=== PATIENT | male | born 1995 | race Asian ===

== ENCOUNTER → 2021-06-14 09:10 | Outpatient (BNVA) | payer OTHER, SELFPAY | PROVIDERS: PCP Internal Medicine; Visit Provider Internal Medicine Pulmonary Disease | DX: J43.9 Emphysema, unspecified (principal); R06.00 Dyspnea, unspecified; Z90.2 Acquired absence of lung [part of] | CPT/HCPCS: 99202 ==

== ENCOUNTER 2021-07-04 08:24 | Outpatient (REF) | payer OTHER, SELFPAY ==
--- NOTE | 2021-07-04 13:27 | PFT_ITS ---
INDICATION: Dyspnea. SPIROMETRY: The FEV1 to FVC of 82% with an FEV1 of 3.68 L, which is 86% predicted, and an FVC of 4.48 L, which is 86% predicted. No significant response to bronchodilators noted. Maximum voluntary ventilation 75% predicted. LUNG VOLUMES: Total lung capacity 90% predicted with a residual volume of 96% predicted. DIFFUSION CAPACITY: DLCO 90% predicted. COMPARISONS: None to review. INTERPRETATION: No obstructive nor restrictive ventilatory defects identified. No significant response to bronchodilators noted. There is a mild decrease in maximum voluntary ventilation, which could be secondary to deconditioning. Lung volumes are within normal limits and diffusion capacity also within normal limits. If asthma is in the differential, methacholine challenge may be helpful in assessing for hyper-reactive airways, otherwise clinical correlation warranted. MD MARIN Paul/MODL / [id number]
== END 2021-07-04 08:25 | disposition home or self-care (01) ==
LOC: HO.RESP 08:24
PROVIDERS: PCP Internal Medicine; Visit Provider Internal Medicine Pulmonary Disease
DX: J43.9 Emphysema, unspecified (principal); R06.00 Dyspnea, unspecified; Z79.899 Other long term (current) drug therapy
CPT/HCPCS: 94060; 94727; 94729

== ENCOUNTER → 2021-07-25 08:50 | Outpatient (BNVA) | payer OTHER, SELFPAY | PROVIDERS: PCP Internal Medicine; Visit Provider Internal Medicine Pulmonary Disease | DX: J43.9 Emphysema, unspecified (principal); R06.00 Dyspnea, unspecified; Z90.2 Acquired absence of lung [part of] | CPT/HCPCS: 99212 ==

== ENCOUNTER → 2022-01-08 08:57 | Outpatient (BNVA) | payer OTHER, SELFPAY | PROVIDERS: PCP Internal Medicine; Visit Provider Internal Medicine Pulmonary Disease | DX: J43.9 Emphysema, unspecified (principal); R06.00 Dyspnea, unspecified; Z90.2 Acquired absence of lung [part of] | CPT/HCPCS: 99212 ==

== ENCOUNTER → 2022-07-18 09:05 | Outpatient (BNVA) | payer OTHER, SELFPAY | PROVIDERS: PCP Internal Medicine; Visit Provider Internal Medicine Pulmonary Disease | DX: J43.9 Emphysema, unspecified (principal); R05.8 Other specified cough; Z90.2 Acquired absence of lung [part of] | CPT/HCPCS: 99212 ==

== ENCOUNTER → 2022-10-02 07:31 | Outpatient (BNVA) | payer OTHER, SELFPAY | PROVIDERS: PCP Internal Medicine; Visit Provider Psychiatry & Neurology Neurology | DX: R20.0 Anesthesia of skin (principal); R20.2 Paresthesia of skin; R51.9 Headache, unspecified; R26.9 Unspecified abnormalities of gait and mobility; R06.83 Snoring | CPT/HCPCS: 99202 ==

== ENCOUNTER 2022-11-04 09:51 | Outpatient (REF) | payer OTHER, SELFPAY ==
--- NOTE | ~2022-11-04 | MR_ITS ---
EXAMINATION: MR BRAIN WITHOUT AND WITH CONTRAST CLINICAL INFORMATION: Right-sided numbness and gait imbalance, history of lung adenocarcinoma COMPARISON: None TECHNIQUE: Multiplanar multisequence MR imaging of the brain was obtained without and following the administration of 10 mL Gadavist intravenous contrast. FINDINGS: There is no acute infarct on diffusion-weighted imaging. There is no intracranial hemorrhage on iron-sensitive imaging. No extra-axial collection or mass effect/herniation. Normal parenchymal signal characteristics. No hydrocephalus. The ventricles are normal in morphology and size. No abnormal parenchymal or extra-axial enhancement. Small left cerebellar developmental venous anomaly. The major flow voids at the skull base are preserved. The midline structures are normal. The cerebellar tonsils are normally positioned. The craniocervical junction is normal. Marrow signal is within normal limits. The visualized soft tissues are without significant abnormality. No signal abnormality within the paranasal sinuses or within the mastoid air cells. MR/MR head/brain wo/w con IMPRESSION: Unremarkable contrast enhanced MRI of the brain.
== END 2022-11-04 09:52 | disposition home or self-care (01) ==
LOC: HO.MRI 09:51
PROVIDERS: PCP Internal Medicine; Visit Provider Psychiatry & Neurology Neurology
DX: R51.9 Headache, unspecified (principal); R20.0 Anesthesia of skin; R20.2 Paresthesia of skin; R26.9 Unspecified abnormalities of gait and mobility
CPT/HCPCS: 70553; A9585

== ENCOUNTER 2022-11-26 08:18 | Outpatient (REF) | payer OTHER, SELFPAY ==
--- NOTE | 2022-11-26 08:21 | EMG_ITS ---
Please see scanned EMG / Nerve Conduction Report. MTDD
== END 2022-11-26 08:19 | disposition home or self-care (01) ==
LOC: HO.NEURO 08:18
PROVIDERS: PCP Internal Medicine; Visit Provider Psychiatry & Neurology Neurology
DX: R20.2 Paresthesia of skin (principal); R20.0 Anesthesia of skin
CPT/HCPCS: 95886; 95913

== ENCOUNTER → 2022-12-16 08:13 | Outpatient (BNVA) | payer OTHER, SELFPAY | PROVIDERS: PCP Internal Medicine; Visit Provider Psychiatry & Neurology Neurology | DX: R20.0 Anesthesia of skin (principal); R20.2 Paresthesia of skin; R26.9 Unspecified abnormalities of gait and mobility; R06.83 Snoring | CPT/HCPCS: 99212 ==

== ENCOUNTER → 2023-01-02 08:40 | Outpatient (BNVA) | payer OTHER, SELFPAY | PROVIDERS: PCP Internal Medicine; Visit Provider Internal Medicine Pulmonary Disease | DX: J43.9 Emphysema, unspecified (principal); G89.18 Other acute postprocedural pain; R06.00 Dyspnea, unspecified; Z90.2 Acquired absence of lung [part of] | CPT/HCPCS: 99212 ==

== ENCOUNTER → 2023-01-14 15:47 | Outpatient (REF) | payer OTHER, SELFPAY | LOC: HO.SL 15:47 | PROVIDERS: PCP Internal Medicine; Visit Provider Psychiatry & Neurology Neurology | DX: G47.10 Hypersomnia, unspecified (principal); R06.83 Snoring | CPT/HCPCS: 95806 ==

== ENCOUNTER → 2023-01-14 15:58 | Outpatient (BNV) | payer OTHER, SELFPAY | PROVIDERS: PCP Internal Medicine; Visit Provider Psychiatry & Neurology Neurology | DX: R06.83 Snoring (principal) | CPT/HCPCS: 95806 ==

== ENCOUNTER 2023-01-26 09:24 | Outpatient (AMB) | payer OTHER, SELFPAY ==
--- NOTE | 2023-01-26 09:31 | A.OFFVIS_ITS ---
Intake Vital Signs 01/26/23 09:33 Height 5 ft 8 in Weight 214 lb BMI 32.5 BP 129/82 Blood Pressure Location Lt brachial Position Sitting Respiration 14 Pulse 87 Pulse Source Pulse Oximeter Intake Visit Reasons: Other Acute Postprocedural Pain Allergies naproxen [From Aleve] Allergy (Intermediate, Verified 01/26/23 09:34) Hives Medication List - Last Reconciled 01/26/23 by Myrna Segovia LPN blood sugar diagnostic (FreeStyle Lite Strips) As directed cholecalciferol (vitamin D3) 25 mcg PO DAILY empagliflozin (Jardiance) 25 mg PO DAILY flash glucose sensor (FreeStyle Kia 2 Sensor kit) As directed Flovent HFA 220 mcg/actuation (fluticasone propionate) 2 puffs inhalation BID 30 days NS gabapentin 300 mg PO TID lancets (FreeStyle Lancets) As directed lisinopril 10 mg PO DAILY metformin ER 1,000 mg PO BID rosuvastatin 10 mg PO BEDTIME tiotropium bromide 2.5 mcg/actuation (Spiriva Respimat) 2 puffs PO QAM HPI Other Acute Postprocedural Pain HPI Details 27-year-old male presenting today for an evaluation right lateral chest wall/upper abdominal pain. 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 Beginning in 2020, he started experiencing an aching, stabbing pain in his right lower anterior thoracic area. It is described as a twisting, aching sensation that is associated with the localized swelling in his right epigastrium. He also reports abnormal temperature sensation in this area, with his skin generally feeling international nurse this part of his torso compared to the rest. He also complains of occasional pain in his right axilla block. It is described as 8 to 10 out of 10 in intensity. It is most manageable when he first wakes up in the morning, when it is 3 out of 10, when it tends to get worse over the course of the day. He is unable to sleep normally or do his daily activities. He had an umbilical hernia repair in October 2020. He is using lidocaine patches in his right epigastric region. His pain was usually brought on by specific triggers, including coughing, sneezing, or overexertion. Recently, his pain has been more consistent and has been occurring even without the triggers, and it is still episodic, with ep isodes of excruciating pain that are not manageable, interspersed with times that he is relatively pain-free. His father had a history of lung cancer. The patient is currently taking gabapentin as of 06/2022 and feels his thoracic/abdominal symptoms have not improved since he started it. It does help with his lower extremity neuropathy symptoms. The patient also take ibuprofen for pain and occasionally supplement ibuprofen with a THC or CBD edible. He is a side sleeper, mostly on the right side, which provides significant relief. He has not tried TENS therapy yet. [facility] Medical History (Updated 01/26/23 @ 12:02 by Rudy Nesbitt MD) Adenocarcinoma Anxiety Depression Diabetes Fatty liver Gait abnormality HTN (hypertension) Hyperlipidemia Hypersomnia Lung cancer Numbness Right facial pain Snoring Thrombosis of right brachial vein Tingling Surgical History H/O hernia repair History of lung surgery Family History Mother Diabetes HTN (hypertension) Thyroid cancer Ovarian cancer Father Lung cancer Kidney failure Social History Alcohol intake: current Patient Tobacco Use Status: Never used Tobacco Substance Use Type: Marijuana Review of Systems Const All systems reviewed & are unremarkable except as noted in HPI and below Physical Exam Vital Signs: Last Vital Signs Pulse 87 01/26/23 09:33 Resp 14 01/26/23 09:33 BP 129/82 01/26/23 09:33 BMI result Body Mass Index 32.5 General: Appears afebrile. Alert and oriented. Mood and affect appropriate. Follows and participates in conversation appropriately. Respiratory effort is unlabored. Able to transition from sit to stand unassisted. Ambulates with bilaterally normal heel strike and toe off. The patient has a lidocaine patch in his right epigastric region, where he feels subjective periodic distension (not noticeable at this time) and is usually the most painful part. Stab incisions along the lower border of the right 12th rib. Sensitivity to touch in the corresponding dermatome, but no significant tenderness. Results Reviewed Results Reviewed: No imaging is available for review. 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 He appears to have symptoms consistent with a denervation injury with subsequent development of CRPS in his right lower thoracic dermatomal distribution. The specific involved dermatome is hard to elicit based on description alone. Will schedule him for right diagnostic intercostal nerve blocks in the office to map out the involved relevant intercostal nerves. Based on that mapping, we can consider trial of temporary intercostal nerve stimulator at the relevant level. Discussed the risks and benefits of the procedure with the patient in detail. All questions were answered. The patient is on board with the plan. Meanwhile, I went over details of TENS therapy with the patient. The patient will obtain a TENS unit over the counter. Justification for interventional therapy: ? Patient with average pain > 6/10 ? Patient has exhausted conservative therapy ? Patient unable to tolerate physical therapy due to pain Scribed for Dr. Nesbitt by Casa Yost, paramedical aide, on 01/26/2023. I, Dr. Nesbitt, have personally reviewed and agree with the information entered by the scribe. Coding Level of Care Code New Pt Level 4 (40919) Diagnoses CRPS (complex regional pain syndrome type I) G90.50 Intercostal neuralgia G58.8
[2023-01-26 09:33] VITALS: BP 129/82; PULSE 87; RESP 14; BMI 32.5
== END 2023-01-26 10:11 | disposition home or self-care (01) ==
PROVIDERS: PCP Internal Medicine; Visit Provider Internal Medicine
DX: G90.50 Complex regional pain syndrome I, unspecified (principal); G58.8 Other specified mononeuropathies
CPT/HCPCS: 99204

== ENCOUNTER → 2023-01-26 09:24 | Outpatient (BNVA) | payer OTHER, SELFPAY | PROVIDERS: PCP Internal Medicine; Visit Provider Internal Medicine | DX: G90.50 Complex regional pain syndrome I, unspecified (principal); G58.8 Other specified mononeuropathies | CPT/HCPCS: 99202 ==

== ENCOUNTER 2023-02-09 10:59 | Outpatient (AMB) | payer OTHER, SELFPAY ==
--- NOTE | 2023-02-09 11:14 | A.OFFVIS_ITS ---
Intake Vital Signs 02/09/23 11:59 Height 5 ft 8 in BP 130/67 Blood Pressure Location Rt brachial Position Sitting Pulse 97 Pulse Source Pulse Oximeter Pulse Oximetry (%) 98 Oxygen Delivery Method Room Air Intake Visit Reasons: Right Dx Intercostal NB Executive Receptionist Required: No Accompanied by: Self / Same As Patient Allergies naproxen [From Aleve] Allergy (Intermediate, Verified 02/09/23 12:00) Hives HPI Right Dx Intercostal NB HPI Details 27-year-old male presenting today for a right 10th and 11th intercoastal nerve block. Patient presents for scheduled procedure. Denies any recent cough, cold, infection, fever or other significant changes in medical history since last office visit. He states that TENS unit is providing moderate relief. [facility] Medical History (Updated 01/26/23 @ 12:02 by Rudy Nesbitt MD) Adenocarcinoma Anxiety Depression Diabetes Fatty liver Gait abnormality HTN (hypertension) Hyperlipidemia Hypersomnia Lung cancer Numbness Right facial pain Snoring Thrombosis of right brachial vein Tingling Surgical History H/O hernia repair History of lung surgery Family History Mother Diabetes HTN (hypertension) Thyroid cancer Ovarian cancer Father Lung cancer Kidney failure Social History Alcohol intake: current Patient Tobacco Use Status: Never used Tobacco Substance Use Type: Marijuana Review of Systems Const All systems reviewed & are unremarkable except as noted in HPI and below Physical Exam Vital Signs: Last Vital Signs Pulse 97 02/09/23 11:59 BP 130/67 02/09/23 11:59 Pulse Ox 98 02/09/23 11:59 Oxygen Delivery Method Room Air 02/09/23 11:59 General: Appears afebrile. Alert and oriented. Mood and affect appropriate. Follows and participates in conversation appropriately. Respiratory effort is unlabored. Able to transition from sit to stand unassisted. Ambulates with bilaterally normal heel strike and toe off. Office Procedures Nerve Block Details: Right 10th and 11th intercoastal nerve block, Ultra-sound Guided After obtaining written consent, pre-procedure time-out was completed. The patient was placed in a left lateral position. The relevant levels of the intercostal nerves were physically palpated corresponding to the patient's pain and marked. Using ultrasound, the appropriate landmarks including the rib, intercostal muscles and pleura were identified. The skin was anesthetized with 1% lidocaine. A 21-gauge 80 mm echostim needle was advanced under sonographic guidance in proximity to each of the intercostal nerves. Aspiration was negative for heme and air. 2 cc of ropivacaine 0.5% mixed with 10 mg Kenalog was injected around each of the targeted nerves. The needle was removed, skin cleansed and a sterile bandage was applied. The patient tolerated the procedure well and no complications were encountered. Following the procedure, the patient's vital signs and respiration were stable. The patient was discharged home in good condition with post-procedural instructions. Time Out: Immediately prior to the procedure, the following was verbally confirmed that there is a signed consent form and that the correct patient, planned procedure, site and side are consistent with documentation and that necessary equipment and/or blood products are available prior to the start of the case. Complications: none EBL: <1 cc Procedure code (CPT) selection complete Results Reviewed Results Reviewed: No imaging is available for review. Assessment & Plan Assessment & Plan (1) Intercostal neuralgia: Code(s): G58.8 - Other specified mononeuropathies (2) CRPS (complex regional pain syndrome type I): Comment: right mid-torso Code(s): G90.50 - Complex regional pain syndrome I, unspecified Plan Patient is status post right 10th and 11th intercoastal nerve block. Patient tolerated procedure well and was discharged home in stable condition with discharge instructions. All questions were answered. Three day follow-up update: Patient states he did not get much pain relief but reports no episodes of his abnormal abdominal muscle swelling during the course of the nerve block. Will proceed with a trial of left intercostal nerve stimulator placement along the previous VATS sca for CRPS secondary to intercostal nerve injury. He has exhausted neuropathic medication, transcutaneous electrical nerve stimulation and extensive rehab following the surgery. Scribed for Dr. Nesbitt by Casa Yost, medical doctor md/medical director, on 02/09/2023. I, Dr. Nesbitt, have personally reviewed and agree with the information entered by the scribe. Coding Level of Care Code Procedure Only Diagnoses Intercostal neuralgia G58.8 CRPS (complex regional pain syndrome type I) G90.50
[2023-02-09 11:59] VITALS: BP 130/67; PULSE 97; O2SAT 98
== END 2023-02-09 11:36 | disposition home or self-care (01) ==
PROVIDERS: PCP Internal Medicine; Visit Provider Internal Medicine
DX: G58.8 Other specified mononeuropathies (principal); G90.50 Complex regional pain syndrome I, unspecified
CPT/HCPCS: 64420; 76942

== ENCOUNTER → 2023-02-09 10:59 | Outpatient (BNVA) | payer OTHER, SELFPAY | PROVIDERS: PCP Internal Medicine; Visit Provider Internal Medicine | DX: G58.8 Other specified mononeuropathies (principal); G90.50 Complex regional pain syndrome I, unspecified | CPT/HCPCS: 64420; J2795; J3301 ==

== ENCOUNTER 2023-06-23 07:23 | Outpatient (AMB) | payer OTHER, SELFPAY ==
--- NOTE | 2023-06-23 07:54 | A.OFFVIS_ITS ---
Intake Vital Signs 06/23/23 07:55 Height 5 ft 8 in Weight 216 lb BMI 32.8 BP 124/87 Blood Pressure Location Rt brachial Position Sitting Intake Visit Reasons: 6m f/u Anesthesia of skin - Conf Allergies naproxen [From Aleve] Allergy (Intermediate, Verified 02/09/23 12:00) Hives HPI HPI Comments History of Present Illness Details 27y/o male with h/o lung adenocarcinoma - s/p cisplatin with alimta in 2019, h/o diabetes diagnosed in 2019 with Hg A1C 7.3 comes for follow up of numbness and tingling in LE. He had left foot numbness in the dorsal area 1 day after evaluation by supervisor benzene refining. His EMG and MRI Brain with alessandro was normal. Gabapentin 300mg tid helps and the symptoms are less now.He denies facial pain. He has CPAP bu meraz codyuble using because of humidifier. His sleep apnea is mild and he started sleeping on the side. Previous history- He reports numbness in distal LE and hands February 2022 . He says it is episodic more intense on the right side. He also has weakness during these episodes, along with tingling. No burning pain. He also feels like his right side of the body locks up . It is more during activity so he has decreased his activity level since Jun 2022. In Jun 2022 he had gout . He was seen by supervisor benzene refining- uses a cane as needed as he feels off balance. In Jul 2022 he noted electric shock sensation and pain in right side of the face for a few seconds - lasted 3 weeks .No numbness or tingling. He denies diplopia vertigo. Since lung surgery he has intermittent abdominal distension on the right side - relieved with standing, usually very painful . when he is pain he has difficulty thinking focusing etc. ANy activity or pressure can trigger. [facility] Medical History Hypersomnia Right facial pain Gait abnormality Tingling Numbness Anxiety Depression Fatty liver Snoring Hyperlipidemia Thrombosis of right brachial vein Diabetes HTN (hypertension) Lung cancer Adenocarcinoma Surgical History H/O hernia repair History of lung surgery Family History Mother Diabetes HTN (hypertension) Thyroid cancer Ovarian cancer Father Lung cancer Kidney failure Social History Alcohol intake: current Patient Tobacco Use Status: Never used Tobacco Substance Use Type: Marijuana Assessment & Plan Assessment & Plan (1) Numbness: Code(s): R20.0 - Anesthesia of skin (2) Tingling: Code(s): R20.2 - Paresthesia of skin (3) Gait abnormality: Code(s): R26.9 - Unspecified abnormalities of gait and mobility (4) Snoring: Code(s): R06.83 - Snoring Plan The etiology of episodic sensory symptoms are likely art of CRPS or small fiber neuropathy. MRI and EMG results discussed CPAP compliance stressed. Suggested position therapy if he did not tolertae CPAP . continue gabapentin 300mg tid Coding Level of Care Code Est Pt Level 4 (12992) Diagnoses Numbness R20.0 Tingling R20.2 Gait abnormality R26.9 Snoring R06.83
[2023-06-23 07:55] VITALS: BP 124/87; BMI 32.8
== END 2023-06-23 08:02 | disposition home or self-care (01) ==
PROVIDERS: PCP Internal Medicine; Visit Provider Psychiatry & Neurology Neurology
DX: R20.0 Anesthesia of skin (principal); R20.2 Paresthesia of skin; R26.9 Unspecified abnormalities of gait and mobility; R06.83 Snoring
CPT/HCPCS: 99214

== ENCOUNTER → 2023-06-23 07:23 | Outpatient (BNVA) | payer OTHER, SELFPAY | PROVIDERS: PCP Internal Medicine; Visit Provider Psychiatry & Neurology Neurology | DX: R20.0 Anesthesia of skin (principal); R20.2 Paresthesia of skin; R26.9 Unspecified abnormalities of gait and mobility; R06.83 Snoring | CPT/HCPCS: 99212 ==

== ENCOUNTER 2023-07-01 09:02 | Outpatient (AMB) | payer OTHER, SELFPAY ==
[2023-07-01 09:04] VITALS: BP 107/77; PULSE 85; O2SAT 96; BMI 33.5
--- NOTE | 2023-07-01 09:04 | A.OFFVIS_ITS ---
Intake Vital Signs 07/01/23 09:04 Height 5 ft 8 in Weight 220 lb 7.396 oz BMI 33.5 BP 107/77 Blood Pressure Location Rt brachial Position Sitting Pulse 85 Pulse Source Doppler Pulse Oximetry (%) 96 Oxygen Delivery Method Room Air Intake Visit Reasons: copd Allergies naproxen [From Aleve] Allergy (Intermediate, Verified 02/09/23 12:00) Hives HPI copd HPI Details 28-year-old gentleman, nonsmoker, with h istory of right lower lobe adenocarcinoma status post lobectomy 1 year prior, previously followed by Travis meeks, presents to transfer his care.? Patient states that he has had no prior personal history of lung disease.? His father, an avid smoker, was diagnosed with lung cancer in his early 50s.? Patient continues to follow-up with thoracic surgery and was noted to have emphysema.? He continues to use Spir richard with good control of his underlying symptoms.? His alpha-1 antitrypsin is normal. Patient has been evaluated by pain management and has been having nerve blocks for his chronic postoperative pain with significant improvement in his symptoms. He is also on CPAP therapy managed by his neurologist. [facility] Medical History Hypersomnia Right facial pain Gait abnormality Tingling Numbness Anxiety Depression Fatty liver Snoring Hyperlipidemia Thrombosis of right brachial vein Diabetes HTN (hypertension) Lung cancer Adenocarcinoma Surgical History H/O hernia repair History of lung surgery Family History Mother Diabetes HTN (hypertension) Thyroid cancer Ovarian cancer Father Lung cancer Kidney failure Social History Alcohol intake: current Patient Tobacco Use Status: Never used Tobacco Substance Use Type: Marijuana Review of Systems Const Denies daytime sleepiness, Denies excessive sweating, Denies fatigue, Denies fever(s), Denies lethargy, Denies malaise, Denies night sweats, Denies snoring and Denies weight loss Eyes Denies blurry vision and Denies itchy eyes ENT Denies nasal congestion, Denies post nasal drip, Denies sinus pain, Denies sinus pressure and Denies other ( Thrush) Card Denies chest pain, Denies pedal edema, Denies dyspnea, Denies orthopnea and Denies paroxysmal nocturnal dyspnea Resp Denies cough, Denies hemoptysis, Denies excessive phlegm production, Denies dyspnea, Denies snoring and Denies wheezing GI Denies abdominal pain and Denies heartburn Musc Denies myalgias, Denies arthralgias and Denies joint swelling Skin/Breast Denies rash Neuro Denies memory loss and Denies seizure-like activity Psych Denies abnormal sleep pattern, Denies anxiety and Denies memory loss Endo Denies excessive sweating, Denies fatigue and Denies heat intolerance Samir/Lymph Denies easy bruising Aller/Immun Denies itchy eyes, Denies seasonal rhinorrhea and Denies wheezing Physical Exam Vital Signs: Last Vital Signs Pulse 85 07/01/23 09:04 BP 107/77 07/01/23 09:04 Pulse Ox 96 07/01/23 09:04 Oxygen Delivery Method Room Air 07/01/23 09:04 BMI result Body Mass Index 33.5 Const General: no acute distress and alert Nutritional Appearance: not obese Orientation/consciousness: Other orientation findings ( oriented) HEENT Head: Yes atraumatic Eyes General: appearance normal, both eyes and all related structures Sclerae: sclerae normal EOM: EOMs intact bilaterally Neck Neck: Yes supple Lymphatic: no lymphadenopathy noted Resp Effort & Inspection: normal respiratory effort and no use of accessory muscles Auscultation: clear to auscultation bilaterally Cardio Rate: regular rate Rhythm: regular rhythm Heart sounds: no gallops, no murmurs and no rubs Skin General skin exam: other ( warm) Extrem General: No clubbing, No cyanosis and No edema Assessment & Plan Assessment & Plan (1) Emphysema lung: Code(s): J43.9 - Emphysema, unspecified Plan: Well controlled on Spiriva. Continue current regimen. (2) Status post lobectomy of lung: Code(s): Z90.2 - Acquired absence of lung [part of] Plan: Patient continues to follow-up with thoracic surgery at [facility]. (3) Recurrent cough: Code(s): R05.8 - Other specified cough Plan: No recent exacerbations. Continue to monitor clinically. Coding Level of Care Code Est Pt Level 4 (32262) Diagnoses Emphysema lung J43.9 Status post lobectomy of lung Z90.2 Recurrent cough R05.8
== END 2023-07-01 09:18 | disposition home or self-care (01) ==
PROVIDERS: PCP Internal Medicine; Visit Provider Internal Medicine Pulmonary Disease
DX: J43.9 Emphysema, unspecified (principal); Z90.2 Acquired absence of lung [part of]; R05.8 Other specified cough
CPT/HCPCS: 99214

== ENCOUNTER → 2023-07-01 09:02 | Outpatient (BNVA) | payer OTHER, SELFPAY | PROVIDERS: PCP Internal Medicine; Visit Provider Internal Medicine Pulmonary Disease | DX: J43.9 Emphysema, unspecified (principal); R05.8 Other specified cough; Z90.2 Acquired absence of lung [part of] | CPT/HCPCS: 99212 ==

== ENCOUNTER 2024-11-02 08:24 | Outpatient (AMB) | payer OTHER, SELFPAY ==
[2024-11-02 08:35] VITALS: PULSE 96; O2SAT 97; BMI 31.2
--- NOTE | 2024-11-02 08:35 | A.OFFVIS_ITS ---
Vital Signs 11/02/24 08:35 Height 5 ft 8 in Weight 205 lb 6 oz BMI 31.2 Pulse 96 Pulse Source Pulse Oximeter Pulse Oximetry (%) 97 Oxygen Delivery Method Room Air Intake Visit Reasons: Follow up Intake Note: Patient presents follow up Numbness/Sleep. Patient states he had a suicide attempt last year and is concerned if that effected his brain. Allergies naproxen [From Aleve] Allergy (Intermediate, Verified 11/02/24 08:38) Hives HPI Comments Details: 29y/o male with h/o lung adenocarcinoma - s/p cisplatin with alimta in 2019, h/o diabetes diagnosed in 2019 with Hg A1C 7.3 comes for follow up of numbness and tingling in LE. SI attempt in January 2024, hospitalized in [facility] and transferred to [facility] unit for 4 weeks. Now he takes Hydroxyzine, Mirtazapine, and Gabapentin as an outpatient with weekly psychology sessions. He is learning strategies to cope effectively with emotional challenges and takes Trazadone. He feels a lot happier spending time outside of the house now though he is not working at the moment, he is not feeling depressed and would not think about hurting himself again, he is fortunate to have a brother who supports him. He is applying for disability due to lung cancer, now 5 years in remission, he will have his 5th CT scan to ensure he is in remission. His FH is + for ovarian cancer mom 65 years old at stage 4, and dad passed with esophageal cancer at 50 years, and he was a smoker. He denies migraines. He denies numbness in dorsal aspect of l/r feet, burning or electric like shocks. He denies symptoms of gout, and does not drink alcohol. He continues to have abdominal distention with pain due to nerve impingement on the R. upper thoracic area when coughing, sneezing, laughing or breathing. He had a resection of the r. lower. lobe in October 2019. He is a side sleeper r. side, he turns to the right and has pain. He continues to work with his therapist for ongoing PT due to balance and gait difficulties. In 2022 he had excruciating pain and syncope. He sees a aircraft painter for nerve block and the frequency of pain decreased, now it is a few times a week, prior to the block he was having pain several times a day. He feels more vulnerable and panics when the pain comes on, must switch positions to get comfortable, and tries to use diversion therapy or taking edibles 2x a week. His EMG and MRI Brain with alessandro was normal. Gabapentin 300mg tid helps and the symptoms are less now. He denies facial pain, twitching or numbness. He has a CPAP has mild sleep apnea and has trouble using it because of his side sleeping habit, and the humidifier bothers him. Today we discussed the pathophysiology of sleep and the importance of cycling through the phases of sleep N1,N2, N3 and REM, in order for prevention of dementia, cv risks, insulin resistance, tissue repair and immunity. He says he will try to be adherent with CPAP therapy. [facility] Medical History (Updated 11/03/24 @ 08:26 by Aga Valencia MD) Obstructive sleep apnea Suicide attempt Hypersomnia Right facial pain Gait abnormality Tingling Numbness Anxiety Depression Fatty liver Snoring Hyperlipidemia Thrombosis of right brachial vein Diabetes HTN (hypertension) Lung cancer Adenocarcinoma Surgical History H/O hernia repair History of lung surgery Family History Mother Diabetes HTN (hypertension) Thyroid cancer Ovarian cancer Father Lung cancer Kidney failure Social History Alcohol intake: current Patient Tobacco Use Status: Never used Tobacco Substance Use Type: Marijuana Physical Exam Vital Signs: Last Vital Signs Pulse 96 11/02/24 08:35 Pulse Ox 97 11/02/24 08:35 Oxygen Delivery Method Room Air 11/02/24 08:35 BMI result Body Mass Index 31.2 Const General: cooperative, healthy appearing, comfortable and no acute distress Nutritional Appearance: average body habitus Eyes Pupils: Equal, round and reactive pupils present Neck Neck: Yes no meningeal signs Neuro General: tone normal, moves all extremities, no meningeal signs and no focal motor deficits Cranial nerves: Yes Facial sensation intact/muscles of mastication intact, Yes Equal, round and reactive pupils present, Yes Normal accommodation reflex present, Yes Bilaterally intact EOM present, Yes Nystagmus not present, Yes Normal facial strength present, Yes Midline tongue present, Yes Symmetric palate elevation present, Yes Ability to bilaterally rotate head present and Yes Ability to bilaterally elevate shoulders present Cognition (Neuro): normal cognition Gait exam (Neuro): Antalgic gait present and Assistive device used (cane for ambulation) Motor exam (neuro): 5/5 motor strength present throughout and Normal motor muscle tone present throughout Deep tendon reflexes (DTR's): Right triceps reflex intensity grade: 1+, Left triceps reflex intensity grade: 1+, Rt Biceps (C5, C6): 1+, Left biceps reflex intensity grade: 1+, Right brachioradialis reflex intensity grade: 1+, Left brachioradialis reflex intensity grade: 1+, Right patellar reflex intensity grade: 1+ and Left patellar reflex intensity grade: 1+ Coordination: [id number] test normal Psych Affect: normal affect Attitude: cooperative Thought process: Normal thought process present Thought content: Normal thought content present Results Reviewed Results Reviewed: Aug 09, 2021 Alpha I trypsin Gene SERPINA MM type - normal variant PET CTscan October 2021, non calcified, 4mm solid nodule medial aspect R.LL. November 04, 2022 MRI IMPRESSION: Unremarkable contrast enhanced MRI of the brain. HST completed January 2023 Mild Sleep apnea AHI is 6 and oxygen desaturation to 85%. Assessment & Plan Assessment & Plan (1) Obstructive sleep apnea: Code(s): G47.33 - Obstructive sleep apnea (adult) (pediatric) Category: Medical (2) CRPS (complex regional pain syndrome type I): Comment: right mid-torso Code(s): G90.50 - Complex regional pain syndrome I, unspecified Category: Medical Qualifiers: Complex regional pain syndrome affected site: upper extremity Laterality: unspecified laterality Qualified Code(s): G90.519 - Complex regional pain syndrome I of unspecified upper limb (3) Gait abnormality: Code(s): R26.9 - Unspecified abnormalities of gait and mobility Category: Medical Plan The etiology of episodic sensory symptoms are likely due to CRPS or small fiber neuropathy. MRI and EMG results discussed with patient. Sleep difficulties with snoring and fatigue CPAP compliance stressed for >4 hours each night and while napping through the day. Positional therapy if he is not able to tolerate cpap in the suppine position, use pillows and laying on side, for humidity, adjust the temperature setting on the machine and use plants in your room, open a window, and or using a filter in the room. continue gabapentin 300mg tid for Complex Regional Pain Syndrome. Balance and Gait difficulties continue PT at [facility] in [place], Thoracic Neurolgia. Will f/u in 3 months for compliance. Consider pain managemnt ref Orders: Orders PT Evaluation and Treatment 11/02/24 G58.8 - Other specified mononeuropathies, G89.18 - Other acute postprocedural pain, R07.81 - Pleurodynia Patient Instructions: Sleep Hygiene provided: set a scheduled bedtime and wake time to help regulate the circadian rhythm and balance the release of pituitary hormones. Sleep in a dark room, temperatures below 68 degrees, and no devices n bed. Limit caffeinated products 6 hours prior to bed, and limit fluids 2-4 hours prior to bed. Gentle night yoga, diffusing essential oils, and playing soft music can be relaxing. Patient Education Re: Sleep cycles provided, and PFTs with therapist at Physical therapy for CRPS and strengthening the core with spirometry exercises. Cleaning CPAP mask, changing filters, hoses and filling reservoir with distilled water as needed, adjusting the humidity and temperature on the machine, asking RHC for support as needed to adjust the settings. Thoracic Neuralgia we discussed the importance of sleep for tissue repair and immunity today, N1, N2, N3, and REM, playing a major role in the recovery of emotional and physical pain. Establishing strong relationships with the people in your [place] of support. Journaling and continuing in the process of recovery after cancer, joining a support group. Complex Regional Pain Syndrome, continue therapy with [facility] for pain management and Gabapentin 300mg TID Coding Level of Care Code Est Pt Level 4 (67190) Diagnoses Obstructive sleep apnea G47.33 Complex regional pain syndrome type 1 of upper extremity, unspecified laterality G90.519 Complex regional pain syndrome affected site: upper extremity Laterality: unspecified laterality Gait abnormality R26.9 Time Spent (min) 30 Comment baseline evaluation of apnea
--- OUTSIDE RECORDS SUMMARY | 2024-11-02 08:42 | XMS_ITS | Clinical Summary ---
Author Organization [facility] Address [address] [place] [id number] Phone Care Team Providers Care Benzene Still Utility Operator Name Role Phone Kenyon Vidal MD Primary Care Provider [phone] Allergies Active Allergy Reactions Criticality Noted Date Comments Naproxen Hives,Other (see comments) 0 Medications Empagliflozin (Jardiance) 25 MG tablet Take 25 mg by mouth 1 (one) time each day 03/25/2022 Active gabapentin (NEURONTIN) 300 MG capsule Take 1 capsule by mouth in the morning and 1 capsule at noon and 1 capsule in the evening. 07/02/2022 Active rosuvastatin (CRESTOR) 10 MG tablet Take 10 mg by mouth 07/16/2022 Active Tiotropium [place] Monohydrate (Spiriva Respimat) 2.5 MCG/ACT aerosol solution INHALE TWO PUFFS BY MOUTH EVERY MORNING 01/09/2022 Active acetaminophen (TYLENOL) 325 MG tablet Take 650 mg by mouth every 6 (six) hours if needed Active fluticasone HFA (Flovent HFA) 220 MCG/ACT inhaler Inhale 2 puffs 2 (two) times a day 01/16/2022 Active cholecalciferol (VITAMIN D-3) 25 MCG (1000 UT) capsule Take 1 capsule by mouth 1 (one) time each day Active lisinopril 10 MG tablet Take 10 mg by mouth 1 (one) time each day 11/20/2022 Active metFORMIN XR (GLUCOPHAGE-XR) 500 MG 24 hr tablet Take 1,000 mg by mouth in the morning and 1,000 mg in the evening. Take with meals. 02/04/2023 Active Active Problems Problem Noted Date Diagnosed Date Hypertension 10/23/2022 History of malignant neoplasm of thoracic cavity structure 11/24/2021 Overview (02/09/2023): Last Assessment & Plan: Patient is a 26-year-old male who in October 2019 had a right lower lobectomy for stage IIb adenocarcinoma and subsequent adjuvant chemotherapy with cisplatin/Alimta. His most recent chest CT surveillance scan was performed on November 04, 2021 which shows stable bilateral pulmonary nodules under 4 mm in size. He has no concerning signs or symptoms to suggest recurrence of his carcinoma at this time. Patient has completed 2 years of 6-month chest CT surveillance and his chest CT surveillance will now be increased to 12-month intervals. His next chest CT surveillance scan will be due in October 2022. Last Assessment & Plan: Mr. Cha is a 27 y/o male who is S/P a Robotic RLL for stage 1b adenocarcinoma and subsequent adjuvant chemotherapy. He was recently seen last month for his routine CT surveillance scan but presents today for increasing right abdominal distention, spasm and numbness and tingling along port site which appears to be a chronic problem 3 years postoperative. This is not impacting eating or causing nausea or vomiting or any other GI discomfort but does cause patient discomfort. 1. I agree with Pain Specialist which I would refer him to but an appointment has been previously arranged for January 26, 2023 at [facility]. 2. No additional pain medication added since patient will be seeing a pain specialist. Continue with Ibuprofen, warm compresses, and lidocaine patch as needed. Pain education provided. 3. Patient requesting counseling services for coping with pain and medication conditions and I will make a referral. 4. Patient instructed to call with any questions or concerns. Proteinuria 09/13/2019 Resolved Problems Problem Noted Date Diagnosed Date Resolved Date Oppositional defiant disorder 10/23/2022 10/23/2022 Thrombosis of vein of upper limb 04/15/2020 10/23/2022 Overview (10/23/2022): 04/2020 Primary adenocarcinoma of lung 10/28/2019 10/23/2022 Overview (10/23/2022): 10/2019 pathology results, stage IB, f/u CT 04/2020 Oncology 12/15/2019: adjuvant chemo with cisplatin with alimta Family history of malignant neoplasm of ovary in first degree relative 10/18/2019 10/23/2022 Acanthosis nigricans 10/04/2019 023 Depressive disorder 10/04/2019 10/24/19 23 Overview (10/23/2022): SI while in 4th grade tried to jump out of window - not happy in school only Fatty liver 10/04/2019 10/23/2022 Hyperlipidemia 10/04/2019 10/23/2022 Liver function test above reference range 10/04/2019 10/23/2022 Metabolic syndrome 10/04/2019 Obstructive sleep apnea syndrome 10/04/2019 10/23/2022 Overview (10/23/2022): 09/27/2013 Cardiology Note: Probable sleep apnea- sleep study pending Vitamin D deficiency 10/04/2019 023 Nodule of lung 09/29/2019 10/23/2022 Overview (10/23/2022): RLL 1.7cm, seen by thoracic surg 09/26/2019, plan for wedge resection Type 2 diabetes mellitus in obese 09/13/2019 10/23/2022 Abdominal pain 08/13/2019 10/23/2022 Acute pharyngitis 08/13/2019 10/23/2022 Encounters Date Type Department Care Team Description 10/10/2024 1:45 PM EDT Office Visit [facility] [address] [address] Tammi Larsen ARNP Proteinuria, not otherwise specified (Primary Dx); Hypertension from Last 3 Months Immunizations Immunization Administration Dates Next Due DTaP 01/21/1996, 5,1994, 4 DTaP / HiB / IPV 07/22/1995, 5,1994, 4 HPV, Quadrivalent 09/08/2013 Hep B, Adolescent or Pediatric 03/03/1995,1993,1994 Influenza, MDCK, PF, Quadrivalent 06/18/2020 Influenza, Unspecified 03/31/2022 MMR 09/25/1998,07/22/1995 Meningococcal Conjugate 09/08/2013 Meningococcal MCV4P 09/14/2008 Pfizer SARS-COV-2 08/07/2021,11/27/2020,11/06/19 21 Pneumococcal Polysaccharide 06/18/2020 Polio, Unspecified 09/25/1998, 6,1994, 4 Td 09/14/2008,09/25/1998 Tdap 06/18/2020 Varicella 07/13/1997 Family History Medical History Relation Comments Cancer Father Diabetes Father's Brother Diabetes Father's Sister Cancer Mother Diabetes Mother Diabetes Mother's Brother Diabetes Mother's Sister Relation Status Comments Father Father's Brother Father's Sister Mother Alive Mother's Brother Mother's Sister Social History Tobacco Use Types Packs/Day Years Used Date Smoking Tobacco: Never Passive Smoke Exposure: Never Smokeless Tobacco: Never Tobacco Cessation:Counseling Given: Not Answered Alcohol Use Standard Drinks/Week Comments Yes 0 (1 standard drink = 0.6 oz pur e alcohol) rare Sex and Gender Information Value Date Recorded Sex Assigned at Not on file Legal Sex Male 2:54 PM EST Gender Identity Not on file Sexual Orientation Not on file Last Filed Vital Signs Vital Sign Reading Time Taken Comments Blood Pressure 138/90 10/10/2024 1:40 PM EDT Pulse 94 10/10/2024 1:40 PM EDT Temperature - - Respiratory Rate - - Oxygen Saturation 97% 09/30/2023 4:05 PM EDT Inhaled Oxygen Concentration - - Weight 93 kg (205 lb) 10/10/2024 1:40 PM EDT Height - - Body Mass Index - - Plan of Treatment Upcoming Encounters Date Type Department Care Team (Lucita thomas Contact Info) Description 04/10/2025 2:45 PM EDT Office Visit [facility] [address] [address] Manolo Jennings MD [address] [address] Health Maintenance Due Date Last Done Comments Pneumococcal Vaccine: Peds ( 0 to 5 Years) and At-Risk Patients (6 to 49 Years) (2 of 2 - PCV) 06/18/2021 06/18/2020 Diabetes: Ophthalmology Exam 08/04/2022 Diabetes: Pedal Pulse Checked 08/04/2022 Diabetes: Sensory Foot Exam 08/04/2022 Diabetes: Visual Foot Exam 08/04/2022 Diabetes: Hemoglobin A1C 10/22/2023 024, 12/31/2022, 06/09/2022 Influenza Vaccine (Season Ended) 2025 05/05/2023, 03/31/2022, 06/18/2020 Hepatitis B Vaccine Completed 03/03/1995, 1994, 1994 Procedures Procedure Name Priority Date/Time Associated Diagnosis Comments URINE ALBUMIN / CREATININE RATIO Routine 10/06/2024 11:20 AM EDT RENAL FUNCTION PANEL Routine 10/06/2024 11:20 AM EDT from Last 3 Months Results * (ABNORMAL) Urine Albumin / Creatinine Ratio (10/06/2024 11:20 AM EDT) Creatinine, Ur 60.0 Not Estab. mg/dL [facility] Albumin, Urine 587.5 Not Estab. ug/mL [facility] Comment: Results confirmed on dilution. Albumin/Creatin ine Ratio 979(H) 0 - 29 mg/g creat [facility] Comment: ? Normal: ?0 - ??29 ? Moderately increased: 30 - 300 ? Severely increased: ? >300 10/06/2024 11:2 0 AM EDT 10/06/2024 us Manolo Jennings MD LAB URINE ORDERABLES Final Resul t [facility] [address] [place] [address] * (ABNORMAL) Renal Function Panel (10/06/2024 11:20 AM EDT) Glucose 326(H) 70 - 99 mg/dL [facility] BUN 13 6 - 20 mg/dL [facility] Creatinine 0.79 0.76 - 1.27 mg/dL [facility] eGFR CKD-EPI CR 2020 123 >59 mL/min/1.7 3 [facility] BUN/Creatinine Ratio 16 9 - 20 [facility] Sodium 135 134 - 144 mmol/L [facility] Potassium 4.2 3.5 - 5.2 mmol/L [facility] Chloride 94(L) 96 - 106 mmol/L [facility] Bicarbonate (CO2) 22 20 - 29 mmol/L [facility] Calcium 10.2 8.7 - 10.2 mg/dL [facility] Albumin 4.9 4.3 - 5.2 g/dL [facility] Phosphorus 4.1 2.8 - 4.1 mg/dL [facility] 10/06/2024 11:2 0 AM EDT 10/06/2024 us Manolo Jennings MD LAB BLOOD ORDERABLES Final Resul t [facility] [address] [place] [address] from Last 3 Months Insurance Medicaid Care Teams Benzene Still Utility Operator Relationship Specialty Start Date End Date Kenyon Vidal MD [address] [place] [id number] PCP - General Internal Medicine 02/09/23
--- OUTSIDE RECORDS SUMMARY | 2024-11-02 08:42 | XMS_ITS | Encounter Summary ---
Author Organization [facility] Address [address] [place] [address] Care Team Providers Care Manager Banking Name Role Phone Kenyon Vidal MD Primary Care Provider [phone] Encounter Details Date Type Department Care Team Description 11/24/2019 Nurse Only [facility] Oncology Services [address], [place] [id number] Vane Irizarry RN Social History Tobacco Use Types Packs/Day Years Used Date Smoking Tobacco: Never Smokeless Tobacco: Never Alcohol Use Standard Drinks/Week Comments Yes 0 (1 standard drink = 0.6 oz pur e alcohol) occassionally Sex and Gender Information Value Date Recorded Sex Assigned at Not on file Gender Identity Not on file Sexual Orientation Not on file Job Start Date Occupation Industry Not on file Not on file Not on file documented as of this encounter Progress Notes * Vane Irizarry RN - 11/24/2019 1:24 PM EDT NN met with patient today to discuss sperm collection, per [facility], prior auth must be done with proof of medical necessity, unable to tell me how long or if it would be approved. Explained this to patient and he decided to go forward with treatment today. documented in this encounter Plan of Treatment Not on file documented as of this encounter Visit Diagnoses Not on filedocumented in this encounter Care Teams Manager Banking Relationship Specialty Start Date End Date Kenyon Vidal MD PCP - General Internal Medicine 01/07/21 documented as of this encounter
--- OUTSIDE RECORDS SUMMARY | 2024-11-02 08:42 | XMS_ITS | Encounter Summary ---
Author Organization [facility] Address [address] [place] [address] Care Team Providers Care Electrical Instrument Technician Name Role Phone Kenyon Vidal MD Primary Care Provider [phone] Encounter Details Date Type Department Care Team Description 04/22/2022 Social Work [facility] Oncology Services [address] [place] [address] Landon Long, [facility] Social History Tobacco Use Types Packs/Day Years [...] on file documented as of this encounter Plan of Treatment Not on file documented as of this encounter Visit Diagnoses Not on filedocumented in this encounter Care Teams Electrical Instrument Technician Relationship Specialty Start Date End Date Kenyon Vidal MD PCP - General Internal Medicine 01/07/21 documented as of this encounter
--- OUTSIDE RECORDS SUMMARY | 2024-11-02 08:42 | XMS_ITS | Clinical Summary ---
Author Organization [address] Address [address] [place] [phone] Phone Care Team Providers Care Cashier General Name Role Phone Kenyon Vidal MD Primary Care Provider [phone] Allergies Active Allergy Reactions Criticality Noted Date Comments Naproxen Sodium Hives 04/15/2024 Naproxen Hives 08/22/2019 Medications acetaminophen (TYLENOL) 325 mg tablet Take 2 tablets (650 mg total) by mouth every 6 hours as needed (pain). Active clotrimazole-be tamethasone (LOTRISONE) 1-0.05 % cream Apply to affected skin on ears twice daily until resolved, typically 2-4 weeks 3 Active empagliflozin (Jardiance) 10 mg tablet Take by mouth. Activ e gabapentin (NEURONTIN) 300 mg capsule Take 1 capsule (300 mg total) by mouth 3 (three) times a day. 4 Active lisinopriL (PRINIVIL,ZESTR IL) 5 mg tablet Take 1 tablet (5 mg total) by mouth 1 (one) time each day. Active ibuprofen (ADVIL,MOTRIN) 600 mg tablet Take 1 tablet (600 mg total) by mouth every 6 (six) hours if needed (for Pain for up to 30 days.). 4 Active fluticasone HFA (Flovent HFA) 220 mcg/actuation inhaler Inhale by mouth. 2 Active metFORMIN (GLUCOPHAGE) 500 mg tablet Take 1 tablet (500 mg total) by mouth 2 (two) times a day with meals. Active tiotropium (SPIRIVA) 18 mcg per inhalation capsule Place 1 capsule (18 mcg total) into inhaler and inhale 1 (one) time each day. Active flash glucose sensor (FREESTYLE ALETHEA 2 SENSOR MISC) 1 Each by Other route See Admin Instructions. APPLY ONE SENSOR EVERY 14 DAYS. USE TO CHECK SUGAR DAILY. REPLACE SENSOR EVERY 14 DAYS - Other Active triamcinolone acetonide (KENALOG-40) 40 mg/mL injection Inject 1 mL into the articular space once for 1 dose. - Intra-articular Active lisinopriL (PRINIVIL,ZESTR IL) 10 mg tablet Take 1 tablet (10 mg total) by mouth 1 (one) time each day. Active rosuvastatin (CRESTOR) 10 mg tablet Take 1 tablet (10 mg total) by mouth 1 (one) time each day. Active glucose blood test strip 1 Strip by In Vitro route daily. - In Vitro Active blood-glucose meter kit Use to check BS once a day Active FREESTYLE LANCETS MISC Use once a day to check BS Active dulaglutide (TRULICITY) 3 mg/0.5 mL pen injector injection Inject 0.5 mL (3 mg total) under the skin every 7 (seven) days. Active colchicine (COLCRYS) 0.6 mg tablet Take 1 Tablet by mouth daily for 60 days. - Oral Active tiotropium (Spiriva Respimat) 2.5 mcg/actuation inhalation spray Inhale 2 puffs by mouth 1 (one) time each day. Active BLOOD-GLUCOSE METER,CONTINUOU S MISC 1 Applicator by Does not apply route daily. Use to check sugar daily - Does not apply Active empagliflozin (JARDIANCE) 25 mg tablet Take 1 tablet (25 mg total) by mouth 1 (one) time each day. 90 tablet 1 Active Active Problems Problem Noted Date Diagnosed Date HTN (hypertension) 04/15/2024 Type 2 diabetes mellitus wit h renal manifestations ([facility] V24, [facility] V28) 04/15/2024 Proteinuria 04/15/2024 Type 2 diabetes mellitus wit h obesity ([facility] V24, [facility] V28) 04/15/2024 Lung nodule 04/15/2024 Hyperlipidemia 04/15/2024 Metabolic syndrome 04/15/2024 Vitamin D deficiency 04/15/2024 VIRY (obstructive sleep apnea) 04/15/2024 Fatty liver 04/15/2024 Depression 04/15/2024 Acanthosis nigricans 04/15/2024 Elevated LFTs 04/15/2024 Primary lung adenocarcinoma, right ([facility] V24, [facility] V28) 04/15/2024 Superficial venous thrombosis of arm, right 10/2023 Immunizations Name Administration Dates Next Due DTaP (Infanrix) 6wks to less than 7yo ,1994,1994,05/19 [id number] (Pentacel) 2mo to less than 5yo 07/22/1995,1994,1994,05/19 HPV, Quadrivalent 09/08/2013 Hepatitis B Pediatric (Enger ix B; Recombivax HB) to less than 20 yo 03/03/1995,1994,1994 Influenza Quadravalent, MDCK , 0.5ml, preservative free (Flucelvax) 6mo and older 05/05/2023,06/18/2020 Influenza, Unspecified 03/31/2022 MMR, measles mumps and rubel la Live (Priorix; M-M-R II) 12mo and older 09/25/1998,07/22/1995 Meningococcal Conjugate (Men veo) MenACWY 11yo to less than 19 yo 09/08/2013 Meningococcal MCV4P 09/14/2008 OPV 09/25/1998, 6,1994,05/19 Visualase SARS-CoV-2 COVID-19, mRNA, LNP-S, preservative free 08/07/2021,11/27/2020,11/05/2020 Pneumococcal polysaccharide 23 valent (Pneumovax 23) 2yo and older 06/18/2020 Td Tetanus diptheria (Tdvax) 7yo and older 09/14/2008,09/25/1998 Tdap Tetanus diptheria acell ular pertussis (Boostrix; Adacel) 7yo and older 06/18/2020 Varicella live (Varivax) 12m o and older 07/13/1997 Surgical History Surgery Date Site/Laterality Comments OTHER SURGICAL HISTORY 10/12/2019 Right PROCEDURE: ---- OTHER ----; COMMENT: da isis right lower lobe wedge resection Medical History Medical History Date Comments HTN (hypertension) DX:HTN (hyper tension) Hyperlipidemia 10/04/2019 DX:Hyperlipidemi a Metabolic syndrome 10/04/2019 DX:Metabolic syndrome Proteinuria 09/13/2019 DX:Proteinuria Type 2 diabetes mellitus wit h renal manifestations ([facility] V24, [facility] V28) 09/13/2019 DX:Type 2 diabetes mellitus with renal manifestations (HCC) Vitamin D deficiency 10/04/2019 DX:Vitamin D deficiency VIRY (obstructive sleep apnea) 10/04/2019 DX :VIRY (obstructive sleep apnea); COMMENT: 09/27/2013 Cardiology Note: Probable sleep apnea- sleep study pending Fatty liver 10/04/2019 DX:Fatty liver Depression 10/04/2019 DX:Depression; C OMMENT: SI while in 4th grade tried to jump out of window - not happy in school only Acanthosis nigricans 10/04/2019 DX:Acanthos is nigricans Elevated LFTs 10/04/2019 DX:Elevated LFTs Type 2 diabetes mellitus wit h obesity ([facility] V24, [facility] V28) 09/13/2019 DX:Type 2 diabetes mellitus with obesity (HCC) Lung nodule 09/29/2019 DX:Lung nodule; COMMENT: RLL 1.7cm, seen by thoracic surg 09/26/2019, plan for wedge resection Abdominal pain DX:Abdominal valencia n History of lung cancer DX:Histor y of lung cancer History of abdominal surgery DX: History of abdominal surgery Family History Medical History Relation Name Comments No Known Problems Brother Lung cancer Father Liver Failure, Alcohol and Other Drug Abuse No Known Problems Maternal Grandfather No Known Problems Maternal Grandmother Diabetes Mother Hypertension,Th yroid Cancer, [place] Ovarian No Known Problems Paternal Grandfather No Known Problems Paternal Grandmother Relation Name Status Comments Brother Alive Father (Age 54) Maternal Grandfather Maternal Grandmother Mother Alive Paternal Grandfather Paternal Grandmother Social History Tobacco Use Types Packs/Day Years Used Date Smoking Tobacco: Never Smokeless Tobacco: Never Tobacco Cessation:Counseling Given: Not Answered Alcohol Use Standard Drinks/Week Comments Yes 0 (1 standard drink = 0.6 oz pur e alcohol) Sex and Gender Information Value Date Recorded Sex Assigned at Not on file Legal Sex Male 3:14 AM EST Gender Identity Not on file Sexual Orientation Not on file Obstetrics History Last Filed Vital Signs Vital Sign Reading Time Taken Comments Blood Pressure 143/107 12/25/2023 10:07 AM EDT Sitting Right arm Pulse 96 12/25/2023 10:07 AM EDT Temperature - - Respiratory Rate - - Oxygen Saturation - - Inhaled Oxygen Concentration - - Weight 95.7 kg (211 lb) 08/01/2024 2:59 PM EST Height 172.7 cm (5' 7.99 ) 08/01/2024 2 :59 PM EST Body Mass Index 32.09 08/01/2024 2:59 PM EST Plan of Treatment Upcoming Encounters Date Type Department Care Team (Late st Contact Info) Description 12/26/2024 9:00 AM EDT Office Visit [facility] Hematology Oncology [address] [place] [phone] Neyda Encinas MD [address] [place] [address] Health Maintenance Due Date Last Done Comments Diabetes: Annual Foot Exam 2004 Diabetes: Annual Retina Eye Exam 2004 Hepatitis A Vaccines (1 of 2 - Risk 2-dose series) 2013 HPV Vaccines (2 - Risk male 3-dose series) 10/06/2013 09/08/2013 Pneumococcal Vaccine: Pediatrics (0 to 5 Years) and At-Risk Patients (6 to 64 Years) (2 of 2 - PCV) 06/18/2021 06/18/2020 Depression Screening 06/20/2022 HIV Screening 06/20/2022 Hepatitis C Screening 06/20/2022 Social Influencers of Health Screening 06/20/2022 Diabetes: Blood Sugar Control Test (HGBA1C) 01/21/2024 07/23/2023 COVID-19 Vaccine ( season) 2024 05/17/2022, 08/07/2021, 11/27/2020, Additional history exists Diabetes: Annual GFR (Glomerular Filtration Rate) 07/23/2024 07/23/2023 Hypertension/CHF/CAD Annual BMP Blood Test 07/23/2024 07/23/2023 Influenza Vaccine (Season Ended) 2025 05/05/2023, 03/31/2022, 06/18/2020 Diabetes: Annual Urine Albumin-Creatinine Ratio (uACR) 10/06/2025 10/06/2024, 09/30/2023, 03/25/2022 Cholesterol Screening (Lipid Panel) 05/05/2028 05/05/2023 DTaP,Tdap,and Td Vaccines (8 - Td or Tdap) 06/18/2030 06/18/2020, 09/14/2008, 09/25/1998, Additional history exists Hepatitis B Vaccines Completed 03/03/1995, 1994, 1994 HIB Vaccines Completed 07/22/1995, 09/10, 1994, Additional history exists Varicella Vaccines Aged Out 07/13/1997 No longer eligible based on patient's age to complete this topic IPV Vaccines Completed 09/25/1998, 01/10, 07/22/1995, Additional history exists MMR Vaccines Completed 09/25/1998, 07/22/1995 Meningococcal ACWY Vaccine Aged Out 09/08/2013, No longer eligible based on patient's age to complete this topic Meningococcal B Vaccine Aged Out No l onger eligible based on patient's age to complete this topic RSV Immunization Patients Under 20 months Aged Out No longer eligible based on patient's age to complete this topic Procedures Procedure Name Priority Date/Time Associated Diagnosis Comments ANNUAL BMP BLOOD TEST Routine 07/23/2023 HEMOGLOBIN A1C Routine 07/23/2023 LIPID PANEL Routine 05/05/2023 URINE ALBUMIN CREATININE RATIO Routine 03/25/2022 from Last 3 Months or Most Recently Relevant to Health Maintenance Results * Annual BMP Blood Test (07/23/2023) Pathologist [facility] Annual BMP Blood Test abstracted us Historical Provider HEALTH MAINTENANCE Final Result * (ABNORMAL) Hemoglobin A1c (07/23/2023) Hemoglobin A1C 7.1(A) <=6.5 % Blood Venous blood specimen / Unknown Historical Provider LAB BLOOD ORDERABLES Kimberli l Result * (ABNORMAL) Lipid panel (05/05/2023) Triglycerides 540(A) 0 - 150 mg/dL Cholesterol 181 0 - 200 mg/dL HDL 42 >=40 mg/dL LDL Cholesterol 0 0 - 100 mg/dL Blood Venous blood specimen / Unknown Historical Provider LAB BLOOD ORDERABLES Kimberli l Result * HM Urine Albumin Creatinine Ratio (03/25/2022) Urine Albumin Creatinine Ratio abstracted Historical Provider HEALTH MAINTENANCE Final Result from Last 3 Months or Most Recently Relevant to Health Maintenance Insurance HEALTH PLAN Advance Directives Documents on File Type Date Recorded Patient Chemical Librarian Expl anation Health Care Decision (hx) 10/14/2019 AD AGUILAR DIRECTIVE Health Care Decision (hx) 10/14/2019 AD AGUILAR DIRECTIVE Health Care Decision (hx) 10/14/2019 AD AGUILAR DIRECTIVE Health Care Decision (hx) 10/14/2019 AD AGUILAR DIRECTIVE Health Care Decision (hx) 10/14/2019 AD AGUILAR DIRECTIVE Health Care Decision (hx) 10/14/2019 AD AGUILAR DIRECTIVE Health Care Decision (hx) 10/14/2019 AD AGUILAR DIRECTIVE Health Care Decision (hx) 10/14/2019 AD AGUILAR DIRECTIVE Health Care Decision (hx) 10/14/2019 AD AGUILAR DIRECTIVE Health Care Decision (hx) 10/14/2019 AD AGUILAR DIRECTIVE Health Care Decision (hx) 10/14/2019 AD AGUILAR DIRECTIVE Health Care Decision (hx) 10/14/2019 AD AGUILAR DIRECTIVE Health Care Decision (hx) 10/14/2019 AD AGUILAR DIRECTIVE Health Care Decision (hx) 10/14/2019 AD AGUILAR DIRECTIVE Health Care Decision (hx) 10/14/2019 AD AGUILAR DIRECTIVE Health Care Decision (hx) 10/14/2019 AD AGUILAR DIRECTIVE Health Care Decision (hx) 10/14/2019 AD AGUILAR DIRECTIVE Health Care Decision (hx) 10/14/2019 AD AGUILAR DIRECTIVE Care Teams Cashier General Relationship Specialty Start Date End Date Kenyon Vidal MD [address] [place] [id number] PCP - General Internal Medicine 10/31/20
--- OUTSIDE RECORDS SUMMARY | 2024-11-02 08:42 | XMS_ITS | Clinical Summary ---
Author Organization [facility] Address [address] [place] [address] Care Team Providers Care Pododermatologist Name Role Phone Kenyon Vidal MD Primary Care Provider [phone] Allergies Active Allergy Reactions Criticality Noted Date Comments Naproxen 11/07/2019 Medications Medication Sig Dispensed Refills Start Date End Date Status lisinopril (PRINIVIL,ZESTRIL) tablet 5 mg Take 1 tablet (5 mg total) by mouth daily. 0 Active metFORMIN (GLUCOPHAGE) tablet 500 mg Take 1 tablet (500 mg total) by mouth 2 (two) times a day with meals. 0 Active clotrimazole-betame thasone (LOTRISONE) cream Apply topically 2 (two) times a day. 0 Active empagliflozin (Jardiance) 10 MG tablet Take by mouth. 0 Active Fluticasone Propionate, Inhal, (FLOVENT DISKUS IN) Inhale into the lungs. 0 Active tiotropium (SPIRIVA) [address] 1 capsule (18 mcg total) into inhaler and inhale daily. 0 Active ibuprofen 600 MG tablet Take 1 tablet (600 mg total) by mouth every 6 (six) hours as needed for pain. 0 Active acetaminophen (TYLENOL) 325 MG tablet Take 2 tablets (650 mg total) by mouth every 6 (six) hours as needed for pain. 0 Active gabapentin (NEURONTIN) 300 MG capsule TAKE ONE CAPSULE BY MOUTH THREE TIMES A DAY 90 capsule 2 11/17/2023 Active Active Problems No known active problems Social History Tobacco Use Types Packs/Day Years [...] file Not on file Not on file Last Filed Vital Signs Vital Sign Reading Time Taken Comments Blood Pressure 143/107 12/25/2023 10:07 AM EDT Pulse 96 12/25/2023 10:07 AM EDT Temperature 36.6 ??C (97.8 ??F) 12/25/2023 10:07 AM E DT Respiratory Rate 20 01/26/2020 8:39 AM EDT Oxygen Saturation 95% 12/25/2023 10:07 AM EDT Inhaled Oxygen Concentration - - Weight 94.5 kg (208 lb 6.4 oz) 12/25/2023 10:07 AM EDT Height 172.7 cm (5' 8 ) 12/25/2023 10:07 AM EDT Body Mass Index 31.69 12/25/2023 10:07 AM EDT Plan of Treatment Health Maintenance Due Date Last Done Comments Hepatitis C Screening 1994 Depression Screening 2006 BMI Counseling 2012 Preventative Health Evaluation 2012 Pneumococcal Vaccine (2 of 2 - PCV) 06/18/2021 06/18/2020 COVID-19 Vaccine ( season) 2024 08/07/2021, 11/27/2020, 11/05/2020 Influenza Vaccine (#1) 2024 05/05/2023, 2019 DTap / Tdap / Td (7 - Td or Tdap) 06/18/2030 06/18/2020, 09/14/2008, 09/25/1998, Additional history exists Hepatitis B Vaccines Completed 03/03/1995, 1994, 1994 RSV Ped < 20 months Aged Out No longe r eligible based on patient's age to complete this topic Care Teams Pododermatologist Relationship Specialty Start Date End Date Kenyon Vidal MD PCP - General Internal Medicine 01/07/21
== END 2024-11-02 09:21 | disposition home or self-care (01) ==
LOC: HO.HSMS 08:25
PROVIDERS: PCP Internal Medicine; Visit Provider Physician Assistant Medical
DX: G47.33 Obstructive sleep apnea (adult) (pediatric) (principal); G90.519 Complex regional pain syndrome I of unspecified upper limb; R26.9 Unspecified abnormalities of gait and mobility
CPT/HCPCS: 99214

== ENCOUNTER → 2024-11-02 08:24 | Outpatient (BNVA) | payer OTHER, SELFPAY | PROVIDERS: PCP Internal Medicine; Visit Provider Physician Assistant Medical | DX: G47.33 Obstructive sleep apnea (adult) (pediatric) (principal); G90.519 Complex regional pain syndrome I of unspecified upper limb; G58.8 Other specified mononeuropathies; G89.18 Other acute postprocedural pain; R26.9 Unspecified abnormalities of gait and mobility; R07.81 Pleurodynia; Z91.51 Personal history of suicidal behavior; Z99.89 Dependence on other enabling machines and devices | CPT/HCPCS: 99212 ==

== ENCOUNTER 2025-02-16 14:24 | Outpatient (REF) | payer OTHER, SELFPAY ==
[2025-02-16 17:51] LABS: MANUAL DIFF FLAG NO
[2025-02-16 17:58] LABS: Hematocrit 52.9 % (42.0-52.0); Hemoglobin 17.9 g/dl (14.0-18.0); Imm Gran Abs Auto 0.05 X10*3/uL (0.00-0.03); Imm Gran Pct Auto 0.8 % (0.0-0.4); Lymphocytes Absolute Auto 1.7 X10*3/uL (1.2-4.9); Mean Corpuscular HGB Conc 33.8 g/dl (31.0-36.0); Mean Corpuscular Hemoglobin 28.5 pg (27.0-33.0); Mean Corpuscular Volume 84.4 fL (80.0-98.0); NRBC Abs Auto 0.000 X10*3/uL (0.0-0.012); NRBC Pct Auto 0.0 /100WBC (0.0-0.2); Platelet Count 252 X10*3/uL (160-400); Red Blood Count 6.27 X10*6/uL (4.60-5.80); White Blood Count 6.0 X10*3/uL (4.8-10.8)
[2025-02-16 18:20] LABS: Alanine Aminotransferase 150 U/L (0-40); Albumin Level 5.1 g/dL (3.5-5.0); Alkaline Phosphatase 107 U/L (39-117); Anion Gap 17 (12-20); Aspartate Amino Transferase 93 U/L (5-37); Blood Urea Nitrogen 12 mg/dL (9-16); Calcium 9.9 mg/dL (8.4-10.2); Carbon Dioxide 24 mmol/L (22-29); Chloride 99 mmol/L (96-108); Estimated Glomerular Filt Rate > 60; Potassium 4.7 mmol/L (3.3-5.1); Sodium 135 mmol/L (135-145); Total Protein 8.6 g/dL (6.5-8.0)
[2025-02-16 18:46] LABS: Folate 11.8 ng/mL (> or = 4.0); Vitamin B12 637 pg/mL (200-900)
[2025-02-21 15:29] LABS: Vitamin D 25-OH, D2 5 ng/mL; Vitamin D 25-OH, D3 14 ng/mL; Vitamin D 25-OH, Total 19 ng/mL (30-100)
== END 2025-02-16 14:25 | disposition home or self-care (01) ==
LOC: HO.HKASLDS 14:24
PROVIDERS: PCP Internal Medicine; Visit Provider Psychiatry & Neurology Neurology
DX: G47.33 Obstructive sleep apnea (adult) (pediatric) (principal); G90.519 Complex regional pain syndrome I of unspecified upper limb; R26.9 Unspecified abnormalities of gait and mobility; Z79.899 Other long term (current) drug therapy; E11.9 Type 2 diabetes mellitus without complications; R51.9 Headache, unspecified
CPT/HCPCS: 36415; 80053; 82306; 82607; 82746; 84443; 85025; 99212

== ENCOUNTER 2025-02-16 14:24 | Outpatient (AMB) | payer OTHER, SELFPAY ==
--- OUTSIDE RECORDS SUMMARY | 2025-02-16 14:28 | XMS_ITS | Clinical Summary ---
Author Organization [facility] Address [address] [place] [address] Phone Care Team Providers Care Building Construction Supervisor Name Role Phone Kenyon Vidal MD Primary Care Provider [phone] Allergies Active Allergy Reactions Criticality Noted Date [...] (one) time each day. 90 tablet 1 4 Active Active Problems Problem Noted Date Diagnosed Date History of lung cancer 12/22/2024 Assessment & Plan (12/22/2024 3:44 PM EDT): Mr. Cha is a 29-year-old male who had a right lower lobectomy in October 2019 for stage Ib pulmonary adenocarcinoma followed by adjuvant chemotherapy. The patient's most recent surveillance chest CT scan done in December 2024 shows no new or worsening pulmonary nodule or thoracic adenopathy to suggest recurrence, or new disease. He does have 2 very small pulmonary nodules on the right side which are stable. We will continue with routine chest CT surveillance next of which will be in 1 year, December 2025. Patient will have a follow-up visit after that scan as part of his surveillance protocol. I discussed this patient with Dr. Do given the patient's age we will continue surveillance for at least 10 years to ensure stability, and will check with medical oncology after that time as to whether we should continue. Patient did ask for referral to orthopedics given the findings of bilateral shoulder and spine degenerative changes which I placed for him. Arthritis 12/22/2024 HTN (hypertension) 04/15/2024 Type 2 diabetes mellitus wit h renal manifestations (CMS/HCC V24, CMS/HCC V28) 04/15/2024 Proteinuria 04/15/2024 Type 2 diabetes mellitus wit h obesity (CMS/HCC V24, CMS/HCC V28) 04/15/2024 Lung nodule 04/15/2024 Hyperlipidemia 04/15/2024 Metabolic syndrome 04/15/2024 Vitamin D deficiency 04/15/2024 VIRY (obstructive sleep apnea) 04/15/2024 Fatty liver 04/15/2024 Depression 04/15/2024 Acanthosis nigricans 04/15/2024 Elevated LFTs 04/15/2024 Superficial venous thrombosis of arm, right 10/2023 Resolved Problems Problem Noted Date Diagnosed Date Resolved Date Primary lung adenocarcinoma, right (CMS/HCC V24, CMS/HCC V28) 04/15/2024 12/22/2024 Encounters Date Type Department Care Team Description 12/26/2024 9:00 AM EDT Office Visit [facility] Hematology Oncology [address] [place] [phone] Neyda Encinas MD Adenocarcinoma of right lung (CMS/HCC V24, CMS/HCC V28) (Primary Dx) 12/22/2024 2:15 PM EDT Office Visit Thoracic Surgery - [place] [address] [phone] Malena Wright PA History of lung cancer (Primary Dx); Arthritis 12/14/2024 12:43 PM EDT - 12/14/2024 11:59 PM EDT Hospital Encounter [facility] CT Scan [address] [place] [address] History of lung cancer Discharge Disposition: Home or Self Care from Last 3 Months Immunizations Name Administration Dates Next Due DTaP (Infanrix) 6wks to less than 7yo ,1994,1994,05/19 [id number] (Pentacel) 2mo to less than 5yo 07/22/1995,1994,1994,05/19 [...] 09/08/2013 Meningococcal MCV4P 09/14/2008 OPV 09/25/1998, 6,1994,05/19 [place] SARS-CoV-2 COVID-19, mRNA, LNP-S, preservative free 08/07/2021,11/27/2020,11/05/2020 [...] 2 diabetes mellitus wit h renal manifestations ([facility] [place] [place]24, [facility] [place] V28) 09/13/2019 DX:Type 2 diabetes mellitus with [...] Type 2 diabetes mellitus wit h obesity ([facility] [place] V24, [facility] [place] V28) 09/13/2019 DX:Type 2 diabetes mellitus with obesity (HCC) Lung nodule 09/29/2019 DX:Lung nodule; COMMENT: RLL 1.7cm, seen by thoracic surg 09/26/2019, plan for wedge resection Abdominal pain DX:Abdominal valencia n History of lung cancer DX:Histor y of lung cancer History of abdominal surgery DX: History of abdominal surgery Primary lung adenocarcinoma, right ([facility] [place] V24, [facility] V28) 04/15/2024 Family History Medical History Relation Name Comments [...] Sign Reading Time Taken Comments Blood Pressure 131/89 12/26/2024 8:56 AM EDT Pulse 93 12/26/2024 8:56 AM EDT Temperature 37.2 C (98.9 F) 12/26/2024 8:56 AM EDT Respiratory Rate 14 12/22/2024 1:35 PM EDT Oxygen Saturation 98% 12/26/2024 8:56 AM EDT Inhaled Oxygen Concentration - - Weight 93 kg (205 lb) 12/26/2024 8:56 AM EDT Height 172.7 cm (5' 8 ) 12/26/2024 8:56 AM EDT Body Mass Index 31.17 12/26/2024 8:56 AM EDT Plan of Treatment Upcoming Encounters Date Type Department Care Team (Late st Contact Info) Description 03/01/2025 9:00 AM EDT Office Visit Orthopedic Surgery - [place] [address] [facility] [address] [place] [address] Philomena Wilkerson PA 175 [facility] [address] [place] [address] 01/02/2026 1:00 PM EDT Office Visit [facility] Hematology Oncology [address] [place] [address] Neyda Encinas MD [address] [place] [address] Health Maintenance Due Date Last Done Comments Diabetes: Annual Foot Exam 2004 Diabetes: Annual Retina Eye Exam 2004 Hepatitis A Vaccines (1 of 2 - Risk 2-dose series) 2013 HPV Vaccines (2 - Risk male 3-dose series) 10/06/2013 09/08/2013 Pneumococcal Vaccine: Pediatrics (0 to 5 Years) and At-Risk Patients (6 to 49 Years) (2 of 2 - PCV) 06/18/2021 06/18/2020 HIV Screening 06/20/2022 Hepatitis C Screening 06/20/2022 Social Influencers of Health Screening 06/20/2022 Diabetes: Blood Sugar Control Test (HGBA1C) 01/21/2024 07/23/2023 COVID-19 Vaccine ( season) 2024 05/17/2022, 08/07/2021, 11/27/2020, Additional history exists Depression Screening 07/13/2024 Diabetes: Annual GFR (Glomerular Filtration Rate) 07/23/2024 07/23/2023 Hypertension/CHF/CAD Annual BMP Blood Test 07/23/2024 07/23/2023 Influenza Vaccine (#1) 2025 , 03/31/2022, 06/18/2020 Diabetes: Annual Urine Albumin-Creatinine Ratio [...] Procedure Name Priority Date/Time Associated Diagnosis Comments CT CHEST WO CONTRAST Routine 12/14/2024 1:19 PM EDT History of lung cancer HM ANNUAL BMP BLOOD TEST Routine 07/23/2023 HEMOGLOBIN A1C Routine 07/23/2023 LIPID PANEL Routine 05/05/2023 HM URINE ALBUMIN CREATININE RATIO Routine 03/25/2022 from Last 3 Months or Most Recently Relevant to Health Maintenance Results * CT Chest wo Contrast (12/14/2024 1:19 PM EDT) Anatomical Region Laterality Modality Body Computed Tomogra phy 12/14/2024 2:26 PM EDT Impressions 12/14/2024 2:[address] appearance of the chest. Moderate hepatic steatosis. -------- FINAL REPORT -------- Dictated By: Dilip Paul Dictated Date: 12/14/2024 14:26 ET Assigned Physician: Dilip Paul Reviewed and Electronically Signed By: Dilip Paul Signed Date: 12/14/2024 14:32 ET Workstation ID: [id number] Transcribed By: Self Edit Transcribed Date: 12/14/2024 14:26 ET Narrative 12/14/2024 2:32 PM EDT PROCEDURE: CT of the chest without intravenous contrast. TECHNIQUE: CT of the chest without intravenous contrast administration. Coronal and sagittal reformats and MIP reconstructions were created. Dose length product: 160 mGy-cm. HISTORY: right lower lobectomy COMPARISON: 12/16/2023. FINDINGS: LUNGS/PLEURA: Right lower lobectomy. Normal caliber airways. Stable nodule associated with the minor fissure and a stable 2 mm right middle lobe nodule. No pleural effusion or pneumothorax. MEDIASTINUM/KATE: No mediastinal mass or lymphadenopathy. No appreciable hilar lymphadenopathy on limited noncontrast evaluation. VASCULATURE: Normal caliber pulmonary arteries. Normal appearance of the aorta and great vessels. CARDIAC: Normal heart size. No coronary artery calcification. CHEST WALL: No axillary or supraclavicular lymphadenopathy. LIMITED ABDOMEN: Moderate hepatic steatosis. BONES: Degenerative changes of the shoulders and spine. There is intra-articular gas in the right glenohumeral joint. Stable sclerotic lesion in the right glenoid, likely a bone island. Procedure Note Dilip Paul MD - 12/14/2024 PROCEDURE: CT of the chest without intravenous contrast. TECHNIQUE: CT of the chest without intravenous contrast administration.Coronal and sagittal reformats and MIP reconstructions were created. Dose length product: 160 mGy-cm. HISTORY: right lower lobectomy COMPARISON: 12/16/2023. FINDINGS: LUNGS/PLEURA: Right lower lobectomy. Normal caliber airways. Stablenodule associated with the minor fissure and a stable 2 mm right middlelobe nodule. No pleural effusion or pneumothorax. MEDIASTINUM/KATE: No mediastinal mass or lymphadenopathy. No appreciablehilar lymphadenopathy on limited noncontrast evaluation. VASCULATURE: Normal caliber pulmonary arteries. Normal appearance of theaorta and great vessels. CARDIAC: Normal heart size. No coronary artery calcification. CHEST WALL: No axillary or supraclavicular lymphadenopathy. LIMITED ABDOMEN: Moderate hepatic steatosis. BONES: Degenerative changes of the shoulders and spine. There isintra-articular gas in the right glenohumeral joint. Stable scleroticlesion in the right glenoid, likely a bone island. IMPRESSION: Stable CT appearance of the chest. Moderate hepatic steatosis. -------- FINAL REPORT -------- Dictated By: Dilip Paul Dictated Date: 12/14/2024 14:26 ET Assigned Physician: Dilip Paul Reviewed and Electronically Signed By: Dilip Paul Signed Date: 12/14/2024 14:32 ET Workstation ID: [id number] Transcribed By: Self Edit Transcribed Date: 12/14/2024 14:26 ET Result [facility] Ameena Kaiser RETAIL STORE ASSISTANT IMG CT PROCEDURES Final Res ult * Annual BMP Blood Test (07/23/2023) Pathologist [facility] Annual BMP Blood Test abstracted Historical Provider HEALTH MAINTENANCE Final Result * (ABNORMAL) Hemoglobin A1c (07/23/2023) Pathologist [facility] Hemoglobin A1C 7.1(A) <=6.5 % Blood Venous blood specimen / Unknown Result [facility] Historical Provider LAB BLOOD ORDERABLES Kimberli l Result * (ABNORMAL) Lipid panel (05/05/2023) Triglycerides 540(A) 0 - 150 mg/dL Cholesterol 181 0 - 200 mg/dL HDL 42 >=40 mg/dL LDL Cholesterol 0 0 - 100 mg/dL Blood Venous blood specimen / Unknown Historical Provider LAB BLOOD ORDERABLES Kimberli l Result * HM Urine Albumin Creatinine Ratio (03/25/2022) Urine Albumin Creatinine Ratio abstracted us Historical Provider HEALTH MAINTENANCE Final Result from Last 3 Months or Most Recently Relevant to Health Maintenance Insurance Advance Directives Documents on File Type Date Recorded Patient Electronic Die Maker Expl anation Health Care Decision (hx) 10/14/2019 [...] (hx) 10/14/2019 AD AGUILAR DIRECTIVE Care Teams Building Construction Supervisor Relationship Specialty Start Date End Date Kenyon Vidal MD [address] [place] [address] PCP - General Internal Medicine 10/31/20
--- OUTSIDE RECORDS SUMMARY | 2025-02-16 14:28 | XMS_ITS | Clinical Summary ---
Author Organization [facility] Address [address] [place] [address] Care Team Providers Care Iron Piler Name Role Phone Kenyon Vidal MD Primary Care Provider Allergies Active Allergy Reactions Criticality Noted Date [...] 96 12/25/2023 10:07 AM EDT Temperature 36.6 C (97.8 F) 12/25/2023 10:07 AM EDT Respiratory Rate 20 01/26/2020 8:39 AM EDT [...] 2 - PCV) 06/18/2021 06/18/2020 COVID-19 Vaccine (4 - season) 2024 08/07/2021, 11/27/2020, 11/05/2020 Influenza Vaccine (#1) 2025 05/05/2023, 2019 DTap / Tdap / Td (7 - Td or Tdap) 06/18/2030 06/18/2020, 09/14/2008, 09/25/1998, Additional history exists Hepatitis B Vaccines Completed 03/03/1995, 1994, 1994 RSV Ped < 20 months Aged Out No longe r eligible based on patient's age to complete this topic Care Teams Iron Piler Relationship Specialty Start Date End Date Kenyon Vidal MD PCP - General Internal Medicine 01/07/21
--- OUTSIDE RECORDS SUMMARY | 2025-02-16 14:28 | XMS_ITS | Clinical Summary ---
Author Organization [facility] Address [address] [place] [phone] Phone Care Team Providers Care Fabrication And Assembly Supervisor Name Role Phone Kenyon Vidal MD Primary Care Provider [phone] Allergies Active Allergy Reactions Criticality Noted Date [...] 10 mg by mouth 07/16/2022 Active Tiotropium [place] Monohydrate (Spiriva Respimat) 2.5 MCG/ACT aerosol solution [...] previously arranged for January 26, 2023 at [facility]. 2. No additional pain medication added [...] pain 08/13/2019 10/23/2022 Acute pharyngitis 08/13/2019 10/23/2022 Immunizations Immunization Administration Dates Next Due DTaP [...] Care Team (Late st Contact Info) Description 03/13/2025 Orders Only [facility] [address] [phone] Tammi Larsen ARNP [address] [address] Proteinuria, not otherwise specified; Hypertension 04/03/2025 8:45 AM EDT Office Visit [facility] [address] [address] Manolo Jennings MD [address] [address] Health Maintenance Due Date Last Done Comments Pneumococcal Vaccine: Peds ( 0 to 5 Years) and At-Risk Patients (6 to 49 Years) (2 of 2 - PCV) 06/18/2021 06/18/2020 Diabetes: Ophthalmology Exam 08/04/2022 Diabetes: Pedal Pulse Checked 08/04/2022 Diabetes: Sensory Foot Exam 08/04/2022 Diabetes: Visual Foot Exam 08/04/2022 Diabetes: Hemoglobin A1C 10/22/2023 024, 12/31/2022, 06/09/2022 Influenza Vaccine (#1) 2025 3, 03/31/2022, 06/18/2020 Hepatitis B Vaccine Completed 03/03/1995, 1994, 1994 Insurance Medicaid Medicaid Care Teams Fabrication And Assembly Supervisor Relationship Specialty Start Date End Date Kenyon Vidal MD [address] [place] [id number] PCP - General Internal Medicine 02/09/23
--- OUTSIDE RECORDS SUMMARY | 2025-02-16 14:28 | XMS_ITS ---
Author Name [facility] Organization Unknown Care Team Organization Name Specialty Phone Email Start Date End [facility] Vidal Primary Care 05/20/2022 02/29/2024
[2025-02-16 14:35] VITALS: BP 132/90; PULSE 100; O2SAT 99; BMI 30.7
--- NOTE | 2025-02-16 14:35 | MHC.OFFVIS ---
Vital Signs 02/16/25 14:35 Height 5 ft 8 in Weight 202 lb 4 oz BMI 30.7 BP 132/90 H Blood Pressure Location Rt brachial Position Sitting Pulse 100 Pulse Source Pulse Oximeter Pulse Oximetry (%) 99 Oxygen Delivery Method Room Air Intake Visit Reasons: 3 mo follow up Intake Note: Follow up VIRY- has not used CPAP in last 3 months Production Supervisor Required: No Accompanied by: Self / Same As Patient Allergies naproxen (From Aleve) Allergy (Intermediate, Verified 02/16/25 14:40) Hives HPI Comments Details: 29y/o male with h/o lung adenocarcinoma - s/p cisplatin with alimta in 2019, h/o diabetes diagnosed in 2019 with Hg A1C 7.3 comes for follow up of numbness and tingling in LE and sleep apnea and mid torso pain ( CRPS) Gabapentin 300mg tid helps and the symptoms are less now.He denies facial pain. He is more consistent with CPAP His mid torso pain is better with therapy .stretching helped ( his pain started after his lung surgery )He also had a nerve block He says he is not compliant with diabetic meds or CPAP. Previous history-SI attempt in January 2024, hospitalized in [facility] and transferred to [facility] SI unit for 4 weeks. Now he takes Hydroxyzine, Mirtazapine, and Gabapentin as an outpatient with weekly psychology sessions. He is learning strategies to cope effectively with emotional challenges and takes Trazadone. He feels a lot happier spending time outside of the house now though he is not working at the moment, he is not feeling depressed and would not think about hurting himself again, he is fortunate to have a brother who supports him. He is applying for disability due to lung cancer, now 5 years in remission, he will have his 5th CT scan to ensure he is in remission. His FH is + for ovarian cancer mom 65 years old at stage 4, and dad passed with esophageal cancer at 50 years, and he was a smoker. Previous history- He reports numbness in distal LE and hands February 2022 . He says it is episodic more intense on the right side. He also has weakness during these episodes, along with tingling. No burning pain. He also feels like his right side of the body locks up . It is more during activity so he has decreased his activity level since Jun 2022. In Jun 2022 he had gout . He was seen by assistant designer- uses a cane as needed as he feels off balance. In Jul 2022 he noted electric shock sensation and pain in right side of the face for a few seconds - lasted 3 weeks .No numbness or tingling. He denies diplopia vertigo. Since lung surgery he has intermittent abdominal distension on the right side - relieved with standing, usually very painful . when he is pain he has difficulty thinking focusing etc. ANy activity or pressure can trigger. [facility] Medical History (Updated 11/03/24 @ 08:26 by Aga Valencia MD) Obstructive sleep apnea Suicide attempt Hypersomnia Right facial pain Gait abnormality Tingling Numbness Anxiety Depression Fatty liver Snoring Hyperlipidemia Thrombosis of right brachial vein Diabetes HTN (hypertension) Lung cancer Adenocarcinoma Surgical History H/O hernia repair History of lung surgery Family History Mother Diabetes HTN (hypertension) Thyroid cancer Ovarian cancer Father Lung cancer Kidney failure Social History Alcohol intake: current Patient Tobacco Use Status: Never used Tobacco Substance Use Type: Marijuana Physical Exam Vital Signs: Last Vital Signs Pulse 100 02/16/25 14:35 BP 132/90 H 02/16/25 14:35 Pulse Ox 99 02/16/25 14:35 Oxygen Delivery Method Room Air 02/16/25 14:35 BMI result Body Mass Index 30.7 Const General: cooperative, healthy appearing, comfortable and no acute distress Nutritional Appearance: average body habitus Eyes Pupils: Equal, round and reactive pupils present Neck Neck: Yes no meningeal signs Neuro General: tone normal, moves all extremities, no meningeal signs and no focal motor deficits Cranial nerves: Yes Facial sensation intact/muscles of mastication intact, Yes Equal, round and reactive pupils present, Yes Normal accommodation reflex present, Yes Bilaterally intact EOM present, Yes Nystagmus not present, Yes Normal facial strength present, Yes Midline tongue present, Yes Symmetric palate elevation present, Yes Ability to bilaterally rotate head present and Yes Ability to bilaterally elevate shoulders present Cognition (Neuro): normal cognition Gait exam (Neuro): Antalgic gait present and Assistive device used (cane for ambulation) Motor exam (neuro): 5/5 motor strength present throughout and Normal motor muscle tone present throughout Deep tendon reflexes (DTR's): Right triceps reflex intensity grade: 1+, Left triceps reflex intensity grade: 1+, Rt Biceps (C5, C6): 1+, Left biceps reflex intensity grade: 1+, Right brachioradialis reflex intensity grade: 1+, Left brachioradialis reflex intensity grade: 1+, Right patellar reflex intensity grade: 1+ and Left patellar reflex intensity grade: 1+ Coordination: wqazag-oh-edum test normal Psych Affect: normal affect Attitude: cooperative Thought process: Normal thought process present Thought content: Normal thought content present Assessment & Plan Assessment & Plan (1) Obstructive sleep apnea: Code(s): G47.33 - Obstructive sleep apnea (adult) (pediatric) Category: Medical (2) CRPS (complex regional pain syndrome type I): Comment: right mid-torso Code(s): G90.50 - Complex regional pain syndrome I, unspecified Category: Medical Qualifiers: Complex regional pain syndrome affected site: upper extremity Laterality: unspecified laterality Qualified Code(s): G90.519 - Complex regional pain syndrome I of unspecified upper limb (3) Gait abnormality: Code(s): R26.9 - Unspecified abnormalities of gait and mobility Category: Medical Plan CPAP compliance stressed for >4 hours each night and while napping through the day. continue gabapentin 300mg tid for Complex Regional Pain Syndrome. F/u endocrinology for diabetes Will f/u in 3 months for compliance. F/u Psychiatry Orders: Orders Complete Blood Count Auto Diff Today G90.519 - Complex regional pain syndrome I of unspecified upper limb, R51.9 - Headache, unspecified Comprehensive Met. Panel Today G90.519 - Complex regional pain syndrome I of unspecified upper limb, R51.9 - Headache, unspecified TSH reflex Free T4 Today G90.519 - Complex regional pain syndrome I of unspecified upper limb, R51.9 - Headache, unspecified Vitamin B12 and Folate Today G90.519 - Complex regional pain syndrome I of unspecified upper limb, R51.9 - Headache, unspecified Vitamin D 25-OH (D2 and D3) Today G90.519 - Complex regional pain syndrome I of unspecified upper limb, R51.9 - Headache, unspecified Coding Level of Care Code Est Pt Level 4 (91788) Complex EM visit Add On G2211 Diagnoses Obstructive sleep apnea G47.33 Complex regional pain syndrome type 1 of upper extremity, unspecified laterality G90.519 Complex regional pain syndrome affected site: upper extremity Laterality: unspecified laterality Gait abnormality R26.9
== END 2025-02-16 15:04 | disposition home or self-care (01) ==
LOC: HO.HSMS 14:25
PROVIDERS: PCP Internal Medicine; Visit Provider Psychiatry & Neurology Neurology
DX: G47.33 Obstructive sleep apnea (adult) (pediatric) (principal); G90.519 Complex regional pain syndrome I of unspecified upper limb; R26.9 Unspecified abnormalities of gait and mobility
CPT/HCPCS: 99214